=== PATIENT | female | born 1975 | race Hispanic/Latino ===

== ENCOUNTER → 2020-07-08 | Outpatient (CLI) | payer MEDICAID | END | disposition home or self-care (01) | LOC: OIH 15:31 | PROVIDERS: ATTEND Internal Medicine | DX: M19.09 Primary osteoarthritis, other specified site (principal); M51.37 Other intervertebral disc degeneration, lumbosacral region; M48.07 Spinal stenosis, lumbosacral region; Z96.643 Presence of artificial hip joint, bilateral | CPT/HCPCS: 72100; 72202 ==